=== PATIENT | male | born 2000 | race Caucasian/White ===

== ENCOUNTER 2024-01-16 08:57 | Outpatient (CLI) | payer BC, SELFPAY ==
[2024-01-16 12:56] LABS: Basophils Absolute Auto 0.1 K/mm3 (0.0-0.1); Basophils Percent Auto 1.2 % (0.2-1.2); Eosinophils Absolute Auto 0.4 K/mm3 (0-0.3); Eosinophils Percent Auto 6.8 % (0-4.4); Hematocrit 45.2 % (42.0-52.0); Hemoglobin 15.6 g/dL (14.0-18.0); Immature Granulocyte Absolute 0.01 K/mm3 (0.00-0.031); Immature Granulocyte Percent A 0.2 % (0-0.5); Lymphocytes Absolute Auto 1.72 K/mm3 (0.9-3.2); Lymphocytes Percent Auto 29.2 % (18.3-44.2); Mean Corpuscular HGB Conc 34.5 g/dl (32-36); Mean Corpuscular Hemoglobin 29.2 pg (26-34); Mean Corpuscular Volume 84.5 fl (80-100); Mean Platelet Volume 9.8 fl (7.4-10.4); Monocytes Absolute Auto 0.5 K/mm3 (0.1-0.6); Monocytes Percent Auto 8.7 % (2.6-8.5); Neutrophils Absolute Auto 3.2 K/mm3 (1.3-6.7); Neutrophils Percent Auto 53.9 % (45.5-73.1); Platelet Count Result 179 k/mm3 (150-375); Red Blood Count 5.35 M/mm3 (4.6-6.20); Red Cell Distribution Width 12.2 % (11.5-14.5); White Blood Count 5.9 K/mm3 (4.5-10.0)
[2024-01-16 13:08] LABS: Alanine Aminotransferase 21 U/L (6-50); Albumin Level 4.5 g/dL (3.5-5.1); Alkaline Phosphatase 67 U/L (38-126); Anion Gap 10 mmol/L (4-12); Aspartate Amino Transferase 53 U/L (17-59); Blood Urea Nitrogen 18 mg/dL (9-20); Calcium 9.5 mg/dL (8.4-10.2); Carbon Dioxide 25 mmol/L (22-30); Chloride 105 mmol/L (98-107); Cholesterol 154 mg/dL (0-200); Estimated Glomerular Filt Rate > 60; Glucose 97 mg/dL (65-110); HDL Direct 47 mg/dL; Potassium 4.3 mmol/L (3.4-5.0); Sodium 140 mmol/L (137-145); Triglycerides 91 mg/dL (<150)
[2024-01-16 13:19] LABS: LDL Cholesterol Direct 84 mg/dL
[2024-01-16 13:50] LABS: Erythrocyte Sedimentation Rate 5 mm/hr (0-20)
== END 2024-01-16 08:58 | disposition home or self-care (01) ==
LOC: ANHGOSHLAB 08:59
PROVIDERS: PCP Internal Medicine; Visit Provider Internal Medicine
DX: M54.16 Radiculopathy, lumbar region (principal); M54.30 Sciatica, unspecified side; Z13.0 Encounter for screening for diseases of the blood and blood-forming organs and certain disorders involving the immune mechanism; Z13.228 Encounter for screening for other metabolic disorders; Z13.29 Encounter for screening for other suspected endocrine disorder
CPT/HCPCS: 36415; 80053; 80061; 85025; 85652

== ENCOUNTER 2024-03-11 16:03 | Outpatient (CLI) | payer BC, SELFPAY ==
--- NOTE | ~2024-03-11 | XR_ITS ---
EXAMINATION: XR lumbar spine min 4V DATE: 03/11/2024 16:20 INDICATION: Radiculopathy, lumbar region. TECHNIQUE: 5 views of lumbar spine including flexion and extension views and standing views were obta ined. COMPARISON: None. FINDINGS: There is 7 degrees levocurvature of thoracolumbar spine. There is 3 mm anterolisthesis of L 5 on S1. There are likely bilateral L5 pars defects. There is no abnormal motion on flexion or extens ion. Vertebral body heights are normal. Intervertebral disc heights are normal. IMPRESSION: 1. Grade 1 anterolisthesis of L5 on S1. Bilateral L5 pars defects likely present. Reviewed, dictated and finalized at location A. IMPRESSION: 1. Grade 1 anterolisthesis of L5 on S1. Bilateral L5 pars defects likely presen t.
== END 2024-03-11 16:04 | disposition home or self-care (01) ==
LOC: ANHIMG 16:04
PROVIDERS: PCP Internal Medicine; Visit Provider Neurological Surgery
DX: M54.16 Radiculopathy, lumbar region (principal)
CPT/HCPCS: 72110